=== PATIENT | male | born 1950 | race Caucasian/White ===

== ENCOUNTER 2023-06-05 11:37 | Inpatient (IN) | payer MEDICARE, OTHER ==
[2023-06-05 12:06] LABS: #Basophils 0.1 thou/uL (0.0-0.2); #Eosinphils 0.2 thou/uL (0.0-0.7); #Monocytes 0.7 thou/uL (0.11-0.59); %Eosinophils 2.8 % (0.0-10.0); %Lymphocytes 16.5 % (21.0-51.0); %Neutrophils 69.4 % (42.0-75.0); Hematocrit 43.4 % (42.0-52.0); Hemoglobin 15.1 g/dL (14.0-18.0); Mean Corpuscular HGB CONC 34.8 g/dL (32.0-36.0); Mean Corpuscular Volume 91.9 fl (78.0-98.0); Mean Platelet Volume 10.1 fL (7.4-10.4); Platelet Count 197 10x3/uL (130-400); RBC Distribution Width 12.5 % (11.5-14.5); Red Blood Cell (RBC) Count 4.72 mill/uL (4.70-6.10); White Blood Cell (WBC) Count 7.2 10x3/uL (4.8-10.8)
[2023-06-05 12:20] LABS: Prothrombin Time 13.5 sec (12.0-14.7)
[2023-06-05 12:21] LABS: PTT 27.1 sec (22.9-36.1)
[2023-06-05 12:23] LABS: ALT (SGPT) 23 U/L (8-55); AST (SGOT) 19 U/L (5-34); Albumin 4.5 g/dL (3.4-4.8); Alkaline Phosphatase 49 U/L (40-110); Anion Gap 14 mmol/L (10-20); BUN (Urea Nitrogen) 13 mg/dL (8.4-25.7); Bilirubin, Total 0.5 mg/dL (0.2-1.2); Calc. Creatinine Clearance 0 mL/min (70-130); Calcium 9.1 mg/dL (7.8-10.44); Carbon Dioxide 20 mmol/L (23-31); Chloride 107 mmol/L (98-107); Estimated GFR 61; Globulin 2.8 g/dL (2.4-3.5); Glucose 114 mg/dL (80-115); Protein, Total 7.3 g/dL (5.8-8.1); Sodium 137 mmol/L (136-145)
[2023-06-05 12:25] LABS: Troponin I 0.014 ng/mL (< 0.028)
[2023-06-05] MEDS ORDERED: Aspirin Chewable 81 MG TAB ONE (12:39)
[2023-06-05] MEDS ORDERED: dilTIAZem 25 MG/5 ML VIAL ONE (12:40)
[2023-06-05] MEDS ORDERED: Ondansetron PF 4 MG/2 ML Vial IVP PRN (12:45)
[2023-06-05] MEDS ORDERED: LORazepam 2 MG/ML SYR.(CARPUJECT) ONE ×2 (13:08→13:11)
[2023-06-05] MEDS ORDERED: Metoprolol Tartrate 5 MG (5 mL) VIAL ONE (13:11)
[2023-06-05] MEDS ORDERED: Amiodarone 150 MG/3 ML VIAL ONE (13:15)
[2023-06-05] MEDS ORDERED: levETIRAcetam 500 MG (5 mL) VIAL ONE (13:48)
[2023-06-05] MEDS ORDERED: Iopamidol-370 76% 500 ML MDV (1 ML CHARGE) ONE (15:46)
[2023-06-05] MEDS ORDERED: Lorazepam 2 MG/ML VIAL SLOW IVP PRN (16:06)
[2023-06-05] MEDS: Acetaminophen 325 MG TAB PO PRN (16:49)
[2023-06-05] MEDS: Lisinopril 10 MG TAB PO SCH (17:42)
[2023-06-05] MEDS: levETIRAcetam 500 MG TAB PO SCH ×2 (17:43→20:40)
[2023-06-05] MEDS: Enoxaparin 40 MG (0.4 mL) SYRINGE SC SCH ×2 (17:44→17:52)
[2023-06-05] MEDS: Gabapentin 400 MG CAP PO SCH (20:38)
[2023-06-05] MEDS: Atorvastatin Calcium 40 MG TAB PO SCH (20:38)
[2023-06-05] MEDS: Famotidine/PF 20 mg/2ml Vial SLOW IVP SCH (20:38)
[2023-06-06 05:33] LABS: #Basophils 0.1 thou/uL (0.0-0.2); #Eosinphils 0.4 thou/uL (0.0-0.7); #Monocytes 0.6 thou/uL (0.11-0.59); #Neutrophils 3.1 thou/uL (1.40-6.50); %Basophils 1.6 % (0.0-1.0); %Eosinophils 6.6 % (0.0-10.0); %Lymphocytes 24.6 % (21.0-51.0); %Monocytes 10.2 % (0.0-10.0); %Neutrophils 56.6 % (42.0-75.0); Hematocrit 40.5 % (42.0-52.0); Hemoglobin 13.7 g/dL (14.0-18.0); Mean Corpuscular HGB CONC 33.8 g/dL (32.0-36.0); Mean Corpuscular Hemoglobin 31.7 pg (27.0-31.0); Mean Corpuscular Volume 93.8 fl (78.0-98.0); Mean Platelet Volume 9.9 fL (7.4-10.4); Platelet Count 181 10x3/uL (130-400); RBC Distribution Width 12.6 % (11.5-14.5); Red Blood Cell (RBC) Count 4.32 mill/uL (4.70-6.10); White Blood Cell (WBC) Count 5.5 10x3/uL (4.8-10.8)
[2023-06-06 06:07] LABS: Anion Gap 9 mmol/L (10-20); BUN (Urea Nitrogen) 10 mg/dL (8.4-25.7); Calc. Creatinine Clearance 78 mL/min (70-130); Calcium 8.8 mg/dL (7.8-10.44); Carbon Dioxide 23 mmol/L (23-31); Cardiac Risk 2.8 (Less than 4.5); Chloride 112 mmol/L (98-107); Cholesterol 127 mg/dl (< 200 Desired); Estimated GFR 73; Glucose 107 mg/dL (80-115); HDL Cholesterol 45 mg/dL (>60 Neg Risk); LDL Cholesterol, Calculated 68 mg/dL; Potassium 4.1 mmol/L (3.5-5.1); Sodium 140 mmol/L (136-145); Triglycerides 71 mg/dL (Less than 150)
[2023-06-06] MEDS: Aspirin 81 mg Enteric Coated Tablet PO SCH (08:50)
[2023-06-06] MEDS: Enoxaparin 40 MG (0.4 mL) SYRINGE SC SCH (08:51)
[2023-06-06] MEDS: Lisinopril 20 MG TAB PO SCH (08:51)
[2023-06-06] MEDS: Lorazepam 2 MG/ML VIAL SLOW IVP SCH (09:36)
[2023-06-06] MEDS: Dronedarone HCl 400 MG TAB PO SCH ×2 (14:29→18:04)
[2023-06-06] MEDS: traZODone HCl 50 MG TAB PO SCH (20:31)
[2023-06-08] MEDS: Milk Of Magnesia 30 ML UDCUP ONE (09:25)
[2023-06-08 09:28] VITALS: BP 151/78
[2023-06-08] MEDS: Milk Of Magnesia 30 ML UDCUP PO PRN (09:29)
[2023-06-08] MEDS: Clopidogrel Bisulfate 75 MG TAB PO SCH (21:11)
[2023-06-09 06:41] VITALS: BMI 29.7
[2023-06-09 08:26] VITALS: TEMP 97.2
[2023-06-09] MEDS: Clopidogrel Bisulfate 75 MG TAB PO SCH (09:01)
== END 2023-06-09 12:10 | disposition home or self-care (01) | DRG 57 ==
LOC: ERS 11:37 → CCU 12:48 → IMCU/EMU 23:10
PROVIDERS: ADMIT Internal Medicine; ATTEND Internal Medicine
PROC: 4A00X4Z Measurement of Central Nervous Electrical Activity, External Approach (ICD-10-PCS; principal; 2023-06-07)
DX: I69.351 Hemiplegia and hemiparesis following cerebral infarction affecting right dominant side (principal); I69.398 Other sequelae of cerebral infarction; G40.909 Epilepsy, unspecified, not intractable, without status epilepticus; I67.1 Cerebral aneurysm, nonruptured; I65.21 Occlusion and stenosis of right carotid artery; I48.91 Unspecified atrial fibrillation; I10 Essential (primary) hypertension; Z79.899 Other long term (current) drug therapy; I69.320 Aphasia following cerebral infarction; E78.5 Hyperlipidemia, unspecified; G89.29 Other chronic pain; M54.50 Low back pain, unspecified; I49.5 Sick sinus syndrome; Z98.890 Other specified postprocedural states
CPT/HCPCS: 36415; 36416; 70450; 70496; 70498; 70551; 80048; 80053; 80061; 84484; 85025; 85610; 85730; 93005; 93306; 95711; 95819; 96374; 96375; J0282; J1650; J1953; J2060; S0028

== ENCOUNTER 2023-09-27 05:54 | Day surgery (SDC) | payer MEDICARE ==
[2023-09-21 11:21] VITALS: BMI 27.5
[2023-09-21 13:09] LABS: Hematocrit 36.3 % (38.8-50.0); Hemoglobin 12.9 g/dL (13.5-17.5); Mean Corpuscular HGB CONC 35.5 g/dL (32.0-36.0); Mean Corpuscular Hemoglobin 32.2 pg (27.0-33.0); Mean Corpuscular Volume 90.5 fL (81.2-95.1); Mean Platelet Volume 10.2 fL (7.4-10.4); Platelet Count 214 10x3/uL (150-450); RBC Distribution Width 12.4 % (11.5-14.5); Red Blood Cell (RBC) Count 4.01 10x6/uL (4.32-5.72); White Blood Cell (WBC) Count 7.1 10x3/uL (3.5-10.5)
[2023-09-21 13:20] LABS: INR-International Normal Ratio 1.1; PTT 27.7 sec (22.0-33.0); Prothrombin Time 11.6 sec (9.5-12.1)
[2023-09-21 13:30] LABS: Anion Gap 12 mmol/L (10-20); BUN (Urea Nitrogen) 15 mg/dL (8.4-25.7); Calc. Creatinine Clearance 69 mL/min (70-130); Calcium 9.2 mg/dL (7.8-10.44); Carbon Dioxide 20 mmol/L (23-31); Chloride 108 mmol/L (98-107); Estimated GFR 68; Glucose 95 mg/dL (80-115); Potassium 4.3 mmol/L (3.5-5.1); Sodium 136 mmol/L (136-145)
[2023-09-27] MEDS ORDERED: PROPOFOL 200 MG/20 ML VIAL ONE (07:50)
== END 2023-09-27 09:02 | disposition home or self-care (01) ==
LOC: SDC 05:54
PROVIDERS: ATTEND Internal Medicine Cardiovascular Disease
PROC: B246ZZ4 Ultrasonography of Right and Left Heart, Transesophageal (ICD-10-PCS; principal; 2023-09-27)
DX: I48.0 Paroxysmal atrial fibrillation (principal); I08.1 Rheumatic disorders of both mitral and tricuspid valves; I10 Essential (primary) hypertension; Z86.73 Personal history of transient ischemic attack (TIA), and cerebral infarction without residual deficits; Z79.899 Other long term (current) drug therapy; Z79.82 Long term (current) use of aspirin; Z87.891 Personal history of nicotine dependence
CPT/HCPCS: 80048; 85027; 85610; 85730; 93312; J2704